=== PATIENT | male | born 1995 | race Caucasian/White ===

== ENCOUNTER 2017-02-06 10:35 | Emergency (ER) | payer OTHER ==
[~2017-02-06] VITALS: Ht 182.8 cm; Wt 124.7 kg
[~2017-02-06 10:35] MED LIST: AMOXICILLIN PO; AMOXICILLIN500 MG PO; AMOXIL400 MG PO; BACTRIM DS 8001 TAB PO; CILOXAN 5 ML5 ML OT; CYCLOBENZAPRINE10 MG PO; FLEXERIL10 MG PO; GENTACIDIN5 ML; HYDROCODONE BIT1 T11 PO; KEFLEX500 MG PO; MOTRIN800 MG PO; Motrin,Rufen800 MG PO; NAPROSYN500 MG PO; PERCOCET 325 MG1 TA2 PO; PREDNISONE20 M1 PO; ROXICET PO; VENTOLIN H0.09 MG/AC INH; VYVANSE60 MG PO; VYVANSE70 MG PO; WELLBUTRIN75 MG PO; ZITHROMAX Z PA250 MG PO; ZITHROMAX250 MG PO; [UNRECOGNIZED DRUG - OTHER] OT
[2017-02-06 11:06] VITALS: BP 132/77
== END 2017-02-06 11:50 | disposition home or self-care (01) ==
LOC: ED 10:35
DX: S05.02XA Injury of conjunctiva and corneal abrasion without foreign body, left eye, initial encounter (principal); F17.200 Nicotine dependence, unspecified, uncomplicated; Z79.899 Other long term (current) drug therapy; X58.XXXA Exposure to other specified factors, initial encounter; Y93.89 Activity, other specified; Y92.219 Unspecified school as the place of occurrence of the external cause; Y99.9 Unspecified external cause status

== ENCOUNTER 2017-05-31 13:32 | Emergency (ER) | payer OTHER ==
[~2017-05-31] VITALS: Ht 182.8 cm; Wt 120.2 kg
[2017-05-31 13:38] VITALS: BP 152/86
[2017-05-31] MEDS ORDERED: CORTISPORIN SUS10 ML OT (13:52)
== END 2017-05-31 14:01 | disposition home or self-care (01) ==
LOC: ED 13:32
DX: H60.502 Unspecified acute noninfective otitis externa, left ear (principal); F17.200 Nicotine dependence, unspecified, uncomplicated; Z79.899 Other long term (current) drug therapy

== ENCOUNTER 2017-08-16 00:47 | Emergency (ER) | payer OTHER ==
[~2017-08-16] VITALS: Ht 213.3 cm; Wt 127.0 kg
[~2017-08-16 00:47] MED LIST changes: +CORTISPORIN SUS10 ML OT
[2017-08-16 00:54] VITALS: BP 127/72
[2017-08-16] MEDS ORDERED: ROBAXIN500 M1 PO (01:34)
[2017-08-16] MEDS ORDERED: ANAPROX DS550 MG PO (01:34)
== END 2017-08-16 02:06 | disposition home or self-care (01) ==
LOC: ED 00:47
DX: S13.9XXA Sprain of joints and ligaments of unspecified parts of neck, initial encounter (principal); R51 Headache; F17.200 Nicotine dependence, unspecified, uncomplicated; Z79.899 Other long term (current) drug therapy; V49.59XA Passenger injured in collision with other motor vehicles in traffic accident, initial encounter; Y93.89 Activity, other specified; Y92.413 State road as the place of occurrence of the external cause; Y99.9 Unspecified external cause status

== ENCOUNTER 2017-09-20 10:05 | Inpatient (IN) | payer OTHER ==
[~2017-09-20] VITALS: Ht 185.4 cm; Wt 154.3 kg
--- NOTE | ~2017-09-20 | PR ---
[place], [place] PROGRESS NOTE NAME: REA MANCINI [facility] #: [id number] UNIT #: [id number] ROOM: 506 DOCTOR: FRANK ROLAND MD BIRTHDATE: [birth year] DOS: 09/22/2017 SUBJECTIVE: The patient appears to be doing well. Denies any specific cardiac complaint. No symptomatic palpitation, no chest pain. No dizziness, no syncope. OBJECTIVE: VITAL SIGNS: Blood pressure 117/76, heart rate 87, respiration rate of 18, temperature 98.3. NECK: Good upstroke, no bruit. HEART: S1, S2, no rub. LUNGS: Clear to auscultation. EXTREMITIES: Lower extremities, mild edema. LABORATORY DATA: White count 8.0, hemoglobin 14.7, potassium 4.3, GFR more than 60%. C-reactive protein is 1.1. D-dimer is less than 0.19. Tox screen is negative. [place] screen is also negative. Sed rate is 12. ASSESSMENT AND PLAN: Current presentation with abnormal EKG along with syncope in a patient who is morbidly obese. Echocardiogram confirmed normal LV function with no significant valve abnormalities. The stress test scheduled for this morning and found that the patient can be discharged home with early followup with us in 6 weeks after 30 days of [facility]. Should there be any recurrence of his symptoms at any time, the patient was encouraged to call us back. Exercise, weight loss, keeping well hydrated, avoiding caffeinated drinks were all detailed. FRANK ROLAND MD CM:DANNIE 1022 [id number] FRANK ROLAND MD 09/22/17 1319 interface
--- NOTE | ~2017-09-20 | ST ---
[place], [place] EXERCISE STRESS TEST REPORT [id number] #: [id number] ROOM: 506 DOCTOR: FRANK ROLAND MD BIRTHDATE: [birth year] DOS: 09/22/2017 INDICATION: Chest pain, with syncope. PROCEDURE: The patient was brought into the stress lab, procedure was explained with risks, benefits, and alternatives. Lexiscan was injected. The patient tolerated the procedure well. BLOOD PRESSURE RESPONSE: Resting blood pressure 108/82 with ending blood pressure 110/80. ELECTROCARDIOGRAM INTERPRETATION: The resting electrocardiogram showed normal sinus rhythm, heart rate of 78, early R-wave progression. Following the injection, there was no evidence of any significant ST or T-wave changes suggestive of myocardial ischemia. No arrhythmias were noted. SUMMARY: 1. Adequate Lexiscan stress test. 2. Negative Lexiscan stress test for stress induced myocardial ischemia. 3. No arrhythmias were noted. 4. Nuclear images will be reported separately. FRANK ROLAND MD CM:STRESS:EXERCISE STRESS TEST REPORT [id number] FRANK ROLAND MD
[2017-09-20 10:05] VITALS: BP 153/89
[~2017-09-20 10:05] MED LIST changes: +ANAPROX DS550 MG PO; +ROBAXIN500 M1 PO
[2017-09-20 10:36] LABS: BASO % 0.2 % (0.0-1.0); EOS # 0.2 10*3/uL (0.0-0.4); EOS % 1.7 % (1.0-4.0); HEMATOCRIT 44.9 % (42.0-52.0); LYMPH # 1.8 10*3/uL (1.3-4.4); LYMPH % 17.5 % (27.0-41.0); MEAN CELL VOLUME 87.4 fl (80.0-94.0); MEAN CORPUSCULAR HGB 31.1 pg (27.0-31.0); MEAN CORPUSCULAR HGB CONC 35.6 g/dl (33.0-37.0); MEAN PLATELET VOLUME 9.6 fl (9.6-12.3); MONO # 0.6 10*3/uL (0.1-1.0); MONO % 5.7 % (3.0-9.0); NEUT # 7.7 10*3/uL (2.3-7.9); NEUT % 74.6 % (47.0-73.0); PLATELET COUNT AUTOMATED 216 10*3/uL (130-400); RED BLOOD COUNT 5.14 10*6/uL (4.50-5.90); WHITE BLOOD COUNT 10.3 10*3/uL (4.8-10.8)
[2017-09-20 10:44] LABS: INTERNATIONAL NORM RATIO 1.1 (2.0-3.5)
[2017-09-20 10:54] LABS: ALBUMIN 4.1 gm/dl (3.1-4.5); ALKALINE PHOSPHATASE 64 U/L (45-117); BUN 10 mg/dl (7-24); CHLORIDE 103 mmol/L (98-107); CREATININE 1.07 mg/dL (0.70-1.30); POTASSIUM 3.8 mmol/L (3.5-5.1); SGOT/AST 40 IU/L (3-35); SGPT/ALT 66 U/L (12-78); SODIUM 137 mmol/L (136-145)
[2017-09-20 10:55] LABS: TROPONIN I < 0.015 ng/ml (<0.045)
[2017-09-20 12:58] LABS: BILIRUBIN NEGATIVE (NEGATIVE); BLOOD NEGATIVE (NEGATIVE); CLARITY CLEAR (CLEAR); COLOR YELLOW (YELLOW); GLUCOSE NEGATIVE (NEGATIVE); KETONE NEGATIVE (NEGATIVE); LEUKO ESTERASE NEGATIVE (NEGATIVE); NITRITE NEGATIVE (NEGATIVE); PH 5.5 (5.0-9.0)
[2017-09-20 13:05] LABS: WBC 0-2 wbc/hpf (0-5)
[2017-09-20 13:11] LABS: URINE AMPHETAMINES < 1000 (1000ng/ml); URINE BARBITURATES < 200 (200ng/ml); URINE BENZODIAZEPINES < 200 (200ng/ml); URINE CANNABINOIDS (THC) < 50 (50ng/ml); URINE COCAINE < 300 (300ng/ml); URINE METHADONE < 300 (300ng/ml); URINE OPIATES < 300 (300ng/ml)
[2017-09-20 13:13] LABS: URINE PHENCYCLIDINE < 25 (25ng/ml)
[2017-09-20 14:50] VITALS: BP 147/90
[2017-09-20 15:18] VITALS: BP 147/90
--- NOTE | 2017-09-20 16:01 | NUR ---
A 21, admitted to , under the services of YUNG Caal DO with a diagnosis of SYNCOPE. Chief complaint is SYNCOPE. Patient arrived via ambulatory from ER. Monitor applied. Initial assessment completed. Vital signs taken and recorded. YUNG CAAL DO notified of admission to the unit. Orders received. See assessment for past medical history, medications and allergies. Patient and/or family oriented to unit. [address] visitation policy reviewed. Clothing/patient valuable form completed. VIANCA TEIXEIRA
--- NOTE | 2017-09-20 17:18 | NUR ---
PT RECEIVED NORCO FOR PAIN IN FOOT RATED 6/10.
--- NOTE | 2017-09-20 17:56 | NUR ---
PT STATES THAT HE DOES NOT NEED TO TAKE VYVANSE WHILE HE IS IN THE HOSPITAL SO I WAS ABLE TO DISCONTINUE THE MED.
--- NOTE | 2017-09-20 19:06 | NUR ---
PT RECEIVED NICOTROL INHALER FOR NICOTINE CRAVINGS.
--- NOTE | 2017-09-20 19:06 | NUR ---
PT STATES NORCO WAS EFFECTIVE.
--- NOTE | 2017-09-20 19:35 | NUR ---
CHARTED PT'S ORTHOSTATIC BLOOD PRESSURES.
[2017-09-20 20:00] VITALS: BP 120/66
--- NOTE | 2017-09-20 20:02 | NUR ---
PT. IS CURRENTLY RESTING IN BED AT THIS TIME WATCHING TV. PT. HAS HOB ELEVATED AND RESPIRATIONS ARE EASY AND REGULA WITH NO DISTRESS NOTED. PT. DOES NOT VERBALIZE ANY COMPLAINTS OR CONCERNS AT THIS TIME. BED IS LOW, WHEELS ARE LOCKED, AND CALL LIGHT IS WITHIN REACH. SEE SHIFT ASSESSMENT.
--- NOTE | 2017-09-20 23:56 | NUR ---
24 HR chart check completed.
[2017-09-21] VITALS: BP 129/76
--- NOTE | 2017-09-21 05:55 | NUR ---
DR. Torrey PACK CONTACTED IN REGARDS TO PT. RECIEVING 0.45NS+20MEQ KCL, NO NEW ORDERS.
[2017-09-21 06:44] LABS: BASO % 0.2 % (0.0-1.0); EOS # 0.3 10*3/uL (0.0-0.4); EOS % 3.3 % (1.0-4.0); HEMATOCRIT 41.9 % (42.0-52.0); HEMOGLOBIN 14.5 g/dl (14.0-18.0); LYMPH # 2.8 10*3/uL (1.3-4.4); LYMPH % 34.4 % (27.0-41.0); MEAN CELL VOLUME 89.5 fl (80.0-94.0); MEAN CORPUSCULAR HGB CONC 34.6 g/dl (33.0-37.0); MONO # 0.8 10*3/uL (0.1-1.0); MONO % 10.1 % (3.0-9.0); NEUT # 4.2 10*3/uL (2.3-7.9); NEUT % 51.6 % (47.0-73.0); PLATELET COUNT AUTOMATED 202 10*3/uL (130-400); RED BLOOD COUNT 4.68 10*6/uL (4.50-5.90); RED CELL DISTRI WIDTH 12.2 % (0-14.5); WHITE BLOOD COUNT 8.1 10*3/uL (4.8-10.8)
[2017-09-21 07:15] LABS: ALBUMIN 3.6 gm/dl (3.1-4.5); ALKALINE PHOSPHATASE 61 U/L (45-117); BUN 10 mg/dl (7-24); CHLORIDE 102 mmol/L (98-107); CHOLESTEROL 231 mg/dL (<200); FREE T4 1.39 ng/dl (0.76-1.46); HDL CHOLESTEROL 29 mg/dl (40-60); LDL CHOLESTEROL 158 mg/dL (9-159); PHOSPHOROUS 3.8 mg/dL (2.5-4.9); POTASSIUM 4.1 mmol/L (3.5-5.1); SGOT/AST 26 IU/L (3-35); SGPT/ALT 49 U/L (12-78); SODIUM 137 mmol/L (136-145); TOTAL PROTEIN 7.1 gm/dL (6.4-8.2); TRIGLYCERIDES 219 mg/dl (<150); VLDL CHOLESTEROL 44 mg/dL (6-40)
--- NOTE | 2017-09-21 07:42 | NUR ---
CARDIOLOGY ANSWERING SERVICE CONTACTED IN REGARDS TO CONSULT, AWAITING CALL BACK.
[2017-09-21 08:00] VITALS: BP 104/60
[2017-09-21 08:05] LABS: VITAMIN D, 25-HYDROXY 14.6 ng/mL (30-100)
--- NOTE | 2017-09-21 09:00 | NUR ---
Electromatic Typist in to talk to patient. Patient states lives at home with family. There are few steps in the home. Physician: Pharmacy: [facility] services: none Patient's level of ADLs: INDEPENDENT Patient has working utilities: all working DME: none Follow-up physician's appointment after d/c: will be made by hospitalist nurse director upon discharge Does patient want to access PORTAL?: no Discharge plan home. SHARON GARCIA
[2017-09-21 12:00] VITALS: BP 108/62
--- NOTE | 2017-09-21 14:45 | NUR ---
PHYSICAL THERAPY House keeping mopping floor 1425. retunred at 1440, sleeping soundly and unable to arouse with voice at this time. Will attempt later time or date. Thamk you for this referral. Maria M Mercer,PT
[2017-09-21 16:00] VITALS: BP 108/62
[2017-09-21 20:00] VITALS: BP 130/67
[2017-09-22] VITALS: BP 132/68
[2017-09-22 06:57] LABS: BASO % 0.3 % (0.0-1.0); EOS # 0.3 10*3/uL (0.0-0.4); EOS % 3.3 % (1.0-4.0); HEMOGLOBIN 14.7 g/dl (14.0-18.0); LYMPH # 2.6 10*3/uL (1.3-4.4); MEAN CELL VOLUME 90.5 fl (80.0-94.0); MEAN CORPUSCULAR HGB 31.7 pg (27.0-31.0); MONO # 0.7 10*3/uL (0.1-1.0); MONO % 8.6 % (3.0-9.0); NEUT # 4.4 10*3/uL (2.3-7.9); NEUT % 54.5 % (47.0-73.0); PLATELET COUNT AUTOMATED 199 10*3/uL (130-400); RED BLOOD COUNT 4.64 10*6/uL (4.50-5.90); RED CELL DISTRI WIDTH 12.2 % (0-14.5)
[2017-09-22 07:24] LABS: BUN 10 mg/dl (7-24); CHLORIDE 105 mmol/L (98-107); CREATININE 0.81 mg/dL (0.70-1.30); POTASSIUM 4.3 mmol/L (3.5-5.1); SODIUM 138 mmol/L (136-145)
[2017-09-22 08:00] VITALS: BP 117/76
--- NOTE | 2017-09-22 08:40 | NUR ---
PT OFF FLOOR FOR STRESS TEST THIS AM WITH DR ROLAND.
--- NOTE | 2017-09-22 09:40 | NUR ---
case management attempted to visit with patient, patient out of the room for testing
--- NOTE | 2017-09-22 10:08 | NUR ---
INFORMED SIGNED CONSENT OBTAINED FOR LEXISCAN STRESS TEST WITH DR ROLAND. RESTING EKG NSR HR 78 BP 108/82. PULSE OX 98% LUNGS CLEAR. PT COMPLETED ONE MINUTE OF A LEXISCAN PROTOCOL WITH PT RECEIVING LEXISCAN 0.4MG IV OVER 10 SECONDS. NO ARRHTYMIAS OR ST CHANGES NOTED. PT C/O SOB, LIGHTHEADEDNESS AND DIZZY WITH INJECTION. LAST RECOVERY HR OF 108 BP 110/80. PT IN STABLE CONDITION, AWAITING NUCLEAR IMAGES.
--- NOTE | 2017-09-22 10:29 | NUR ---
PHYSICAL THERAPY PAtient at stress test. Maria M Mercer,PT
--- NOTE | 2017-09-22 11:07 | NUR ---
PT BACK TO FLOOR VIA TRANSPORT FROM STRESS TEST.
[2017-09-22 12:00] VITALS: BP 116/83
[2017-09-22] MEDS ORDERED: VITAMIN D5000 UNI1 PO (13:55)
[2017-09-22] MEDS ORDERED: B12,B-12,B 12500 MC1 PO (13:55)
--- NOTE | 2017-09-22 14:05 | NUR ---
PHYSICAL THERAPY PAtient evaluated on 5, full evaluation to follow. D/C PT after evaluation: patient 100 % (I) all functional mobility including stairs, stops,turns and picking objects up off floor without vertigo or syncopy symptoms. PAtient agrees. PAtient is low compexity via chart review, tests and evaluation: [id number]. Thank you for this referral. Maria M Mercer,PT
--- NOTE | 2017-09-22 16:02 | NUR ---
Discharge instructions reviewed with patient/family. Patient receptive and verbalizes understanding. Follow-up care arranged. Written instructions given to patient/family. AYANNA MARSH
== END 2017-09-22 16:02 | disposition home or self-care (01) | DRG 312 ==
LOC: ED 10:05 → EDHOLD 13:54 → 5E 13:54
PROVIDERS: Internal Medicine; Physician Assistant; Student in an Organized Health Care Education/Training Program; ADMIT Emergency Medicine
PROC: 4A02XM4 Measurement of Cardiac Total Activity, External Approach (ICD-10-PCS; principal; 2017-09-22)
PROC: 3E073KZ Introduction of Other Diagnostic Substance into Coronary Artery, Percutaneous Approach (ICD-10-PCS; 2017-09-22)
DX: I95.1 Orthostatic hypotension (principal); E87.2 Acidosis; E66.01 Morbid (severe) obesity due to excess calories; Z68.41 Body mass index [BMI] 40.0-44.9, adult; I10 Essential (primary) hypertension; R73.9 Hyperglycemia, unspecified; J45.909 Unspecified asthma, uncomplicated; K21.9 Gastro-esophageal reflux disease without esophagitis; R74.0 Nonspecific elevation of levels of transaminase and lactic acid dehydrogenase [LDH]; F90.9 Attention-deficit hyperactivity disorder, unspecified type; F17.210 Nicotine dependence, cigarettes, uncomplicated; E78.5 Hyperlipidemia, unspecified; E55.9 Vitamin D deficiency, unspecified; E53.8 Deficiency of other specified B group vitamins; Z83.3 Family history of diabetes mellitus; Z71.6 Tobacco abuse counseling; Z82.49 Family history of ischemic heart disease and other diseases of the circulatory system; Z79.899 Other long term (current) drug therapy

== ENCOUNTER 2017-10-26 13:26 | Emergency (ER) | payer OTHER ==
[~2017-10-26] VITALS: Ht 185.4 cm; Wt 129.3 kg
[~2017-10-26 13:26] MED LIST changes: +B12,B-12,B 12500 MC1 PO; +VITAMIN D5000 UNI1 PO
[2017-10-26] MEDS ORDERED: VYVANSE70 MG PO (13:29)
[2017-10-26 13:32] VITALS: BP 139/74
[2017-10-26] MEDS ORDERED: CEPHALEXIN500 M1 PO (14:53)
== END 2017-10-26 15:23 | disposition home or self-care (01) ==
LOC: ED 13:26
DX: L03.012 Cellulitis of left finger (principal); F17.200 Nicotine dependence, unspecified, uncomplicated; Z79.899 Other long term (current) drug therapy

== ENCOUNTER 2018-05-08 18:34 | Emergency (ER) | payer OTHER ==
[~2018-05-08] VITALS: Ht 182.8 cm; Wt 129.3 kg
[~2018-05-08 18:34] MED LIST changes: +CEPHALEXIN500 M1 PO
[2018-05-08 18:36] VITALS: BP 128/75
== END 2018-05-08 19:15 | disposition home or self-care (01) ==
LOC: ED 18:34
DX: S51.811A Laceration without foreign body of right forearm, initial encounter (principal); I10 Essential (primary) hypertension; J45.909 Unspecified asthma, uncomplicated; K21.9 Gastro-esophageal reflux disease without esophagitis; E78.5 Hyperlipidemia, unspecified; E66.01 Morbid (severe) obesity due to excess calories; Z79.899 Other long term (current) drug therapy; X58.XXXA Exposure to other specified factors, initial encounter; Y93.89 Activity, other specified; Y92.89 Other specified places as the place of occurrence of the external cause; Y99.8 Other external cause status

== ENCOUNTER 2018-05-29 16:47 | Emergency (ER) | payer OTHER ==
[~2018-05-29] VITALS: Ht 185.4 cm; Wt 149.7 kg
--- NOTE | ~2018-05-29 | EKG ---
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
[2018-05-29 16:51] VITALS: BP 128/81
[2018-05-29 17:13] LABS: BILIRUBIN NEGATIVE (NEGATIVE); BLOOD NEGATIVE (NEGATIVE); CLARITY CLEAR (CLEAR); COLOR YELLOW (YELLOW); GLUCOSE NEGATIVE (NEGATIVE); KETONE NEGATIVE (NEGATIVE); LEUKO ESTERASE NEGATIVE (NEGATIVE); NITRITE NEGATIVE (NEGATIVE); PH 6.5 (5.0-9.0); UROBILINOGEN 0.2 E.U./dl (0.2-1.0)
[2018-05-29 17:15] LABS: BASO % 0.3 % (0.0-1.0); EOS # 0.3 10*3/uL (0.0-0.4); HEMATOCRIT 43.7 % (42.0-52.0); HEMOGLOBIN 15.3 g/dl (14.0-18.0); LYMPH # 2.4 10*3/uL (1.3-4.4); LYMPH % 31.4 % (27.0-41.0); MEAN CELL VOLUME 89.5 fl (80.0-94.0); MEAN CORPUSCULAR HGB 31.4 pg (27.0-31.0); MEAN PLATELET VOLUME 9.7 fl (9.6-12.3); MONO # 0.5 10*3/uL (0.1-1.0); MONO % 6.9 % (3.0-9.0); NEUT # 4.3 10*3/uL (2.3-7.9); PLATELET COUNT AUTOMATED 249 10*3/uL (130-400); RED BLOOD COUNT 4.88 10*6/uL (4.50-5.90); WHITE BLOOD COUNT 7.6 10*3/uL (4.8-10.8)
[2018-05-29 17:23] LABS: MUCOUS TRACE; RBC 0-2 rbc/hpf (0-2); WBC 0-2 wbc/hpf (0-5)
[2018-05-29 17:30] LABS: ALBUMIN 3.7 gm/dl (3.1-4.5); ALKALINE PHOSPHATASE 58 U/L (45-117); BUN 12 mg/dl (7-24); CHLORIDE 105 mmol/L (98-107); CREATININE 0.96 mg/dL (0.70-1.30); POTASSIUM 4.5 mmol/L (3.5-5.1); SGOT/AST 54 IU/L (3-35); SGPT/ALT 62 U/L (12-78); SODIUM 138 mmol/L (136-145); TOTAL PROTEIN 7.7 gm/dL (6.4-8.2)
[2018-05-29 17:35] LABS: TROPONIN I < 0.015 ng/ml (<0.045)
[2018-05-29] MEDS ORDERED: KEFLEX500 M1 PO (18:03)
== END 2018-05-29 18:13 | disposition home or self-care (01) ==
LOC: ED 16:47
PROVIDERS: Nurse Practitioner Family
DX: T25.622A Corrosion of second degree of left foot, initial encounter (principal); R51 Headache; I10 Essential (primary) hypertension; J45.909 Unspecified asthma, uncomplicated; E78.5 Hyperlipidemia, unspecified; K21.9 Gastro-esophageal reflux disease without esophagitis; F17.200 Nicotine dependence, unspecified, uncomplicated; Z79.899 Other long term (current) drug therapy; Y93.89 Activity, other specified; Y92.89 Other specified places as the place of occurrence of the external cause; Y99.8 Other external cause status

== ENCOUNTER 2019-01-02 21:26 | Emergency (ER) | payer OTHER ==
[~2019-01-02] VITALS: Ht 185.4 cm; Wt 130.6 kg
[~2019-01-02 21:26] MED LIST changes: +KEFLEX500 M1 PO
[2019-01-02 21:27] VITALS: BP 128/72
[2019-01-02] MEDS ORDERED: ANAPROX DS550 MG PO (23:21)
== END 2019-01-02 23:39 | disposition home or self-care (01) ==
LOC: ED 21:26
DX: S93.492A Sprain of other ligament of left ankle, initial encounter (principal); Z79.899 Other long term (current) drug therapy; X50.1XXA Overexertion from prolonged static or awkward postures, initial encounter; Y93.01 Activity, walking, marching and hiking; Y92.89 Other specified places as the place of occurrence of the external cause; Y99.9 Unspecified external cause status

== ENCOUNTER 2019-05-23 21:11 | Emergency (ER) | payer OTHER ==
[~2019-05-23] VITALS: Ht 185.4 cm; Wt 127.0 kg
[2019-05-23 21:15] VITALS: BP 131/69
[2019-05-23] MEDS ORDERED: PREDNISONE10 MG PO (21:22)
== END 2019-05-23 21:28 | disposition home or self-care (01) ==
LOC: ED 21:11
DX: L23.7 Allergic contact dermatitis due to plants, except food (principal); F17.200 Nicotine dependence, unspecified, uncomplicated; Z79.899 Other long term (current) drug therapy

== ENCOUNTER 2019-06-23 14:43 | Emergency (ER) | payer OTHER ==
[~2019-06-23] VITALS: Ht 185.4 cm; Wt 127.0 kg
--- NOTE | ~2019-06-23 | EKG ---
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 DRAFT REPORT CASSI HANDY MD
--- NOTE | ~2019-06-23 | EKG ---
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
[~2019-06-23 14:43] MED LIST changes: +PREDNISONE10 MG PO
[2019-06-23 15:02] LABS: BASO % 0.3 % (0.0-1.0); EOS # 0.2 10*3/uL (0.0-0.4); EOS % 2.6 % (1.0-4.0); HEMATOCRIT 42.7 % (42.0-52.0); HEMOGLOBIN 14.9 g/dl (14.0-18.0); LYMPH # 1.6 10*3/uL (1.3-4.4); LYMPH % 20.8 % (27.0-41.0); MEAN CELL VOLUME 90.1 fl (80.0-94.0); MEAN CORPUSCULAR HGB 31.4 pg (27.0-31.0); MEAN CORPUSCULAR HGB CONC 34.9 g/dl (33.0-37.0); MEAN PLATELET VOLUME 9.7 fl (9.6-12.3); MONO # 0.8 10*3/uL (0.1-1.0); MONO % 10.8 % (3.0-9.0); NEUT % 65.2 % (47.0-73.0); PLATELET COUNT AUTOMATED 196 10*3/uL (130-400); RED BLOOD COUNT 4.74 10*6/uL (4.50-5.90); RED CELL DISTRI WIDTH 12.1 % (0-14.5); WHITE BLOOD COUNT 7.7 10*3/uL (4.8-10.8)
[2019-06-23 15:13] LABS: ACT PARTIAL THROMBO TIME 27.6 SECONDS (20.0-32.1)
[2019-06-23 15:20] LABS: ALBUMIN 3.9 gm/dl (3.1-4.5); ALKALINE PHOSPHATASE 58 U/L (45-117); BUN 7 mg/dl (7-24); CHLORIDE 104 mmol/L (98-107); CREATININE 0.93 mg/dL (0.70-1.30); POTASSIUM 3.8 mmol/L (3.5-5.1); SGOT/AST 26 IU/L (3-35); SGPT/ALT 46 U/L (12-78); SODIUM 137 mmol/L (136-145); TOTAL PROTEIN 7.8 gm/dL (6.4-8.2)
[2019-06-23 15:22] LABS: TROPONIN I < 0.015 ng/ml (<0.045)
[2019-06-23 16:00] VITALS: BP 140/62
[2019-06-23] MEDS ORDERED: PROVENTIL HFA6.7 GM INH (16:49)
[2019-06-23] MEDS ORDERED: AVPAK AZITHROM250 MG PO (16:49)
== END 2019-06-23 17:03 | disposition home or self-care (01) ==
LOC: ED 14:43
PROVIDERS: Emergency Medicine
DX: J18.9 Pneumonia, unspecified organism (principal); R55 Syncope and collapse; R42 Dizziness and giddiness; H53.8 Other visual disturbances; J45.909 Unspecified asthma, uncomplicated; K21.9 Gastro-esophageal reflux disease without esophagitis; E78.5 Hyperlipidemia, unspecified; E66.01 Morbid (severe) obesity due to excess calories; I10 Essential (primary) hypertension; F17.200 Nicotine dependence, unspecified, uncomplicated; Z79.899 Other long term (current) drug therapy

== ENCOUNTER → 2019-10-11 | Outpatient (CLI) | payer OTHER ==
[~2019-10-11] MED LIST changes: +AVPAK AZITHROM250 MG PO; +PROVENTIL HFA6.7 GM INH
== END | disposition home or self-care (01) ==
LOC: CT 12:53
DX: M25.471 Effusion, right ankle (principal); M25.475 Effusion, left foot; M25.772 Osteophyte, left ankle

== ENCOUNTER → 2019-10-17 | Outpatient (CLI) | payer OTHER | END | disposition home or self-care (01) | LOC: MRI 12:53 | DX: Z01.818 Encounter for other preprocedural examination (principal); M19.071 Primary osteoarthritis, right ankle and foot; M19.072 Primary osteoarthritis, left ankle and foot; S93.412A Sprain of calcaneofibular ligament of left ankle, initial encounter; X58.XXXA Exposure to other specified factors, initial encounter; Y93.89 Activity, other specified; Y92.89 Other specified places as the place of occurrence of the external cause; Y99.8 Other external cause status ==

== ENCOUNTER → 2019-10-18 | Outpatient (CLI) | payer OTHER | END | disposition home or self-care (01) | LOC: MRI 00:07 | DX: M19.071 Primary osteoarthritis, right ankle and foot (principal); M25.571 Pain in right ankle and joints of right foot; M25.771 Osteophyte, right ankle ==

== ENCOUNTER 2019-10-27 13:10 | Emergency (ER) | payer OTHER ==
[~2019-10-27] VITALS: Ht 185.4 cm; Wt 127.0 kg
[2019-10-27 13:28] VITALS: BP 134/70
[2019-10-27] MEDS ORDERED: IBU800 MG PO (14:50)
[2019-10-27] MEDS ORDERED: TAMIFLU 75MG CA75 MG PO (14:50)
[2019-10-27] MEDS ORDERED: TESSALON PERLE100 MG PO (14:50)
== END 2019-10-27 15:11 | disposition home or self-care (01) ==
LOC: ED 13:10
DX: J10.1 Influenza due to other identified influenza virus with other respiratory manifestations (principal); J45.909 Unspecified asthma, uncomplicated; K21.9 Gastro-esophageal reflux disease without esophagitis; F17.200 Nicotine dependence, unspecified, uncomplicated; Z79.899 Other long term (current) drug therapy; Z79.2 Long term (current) use of antibiotics

== ENCOUNTER 2020-07-29 00:36 | Emergency (ER) | payer OTHER ==
[~2020-07-29] VITALS: Ht 182.8 cm; Wt 176.9 kg
[~2020-07-29 00:36] MED LIST changes: +IBU800 MG PO; +TAMIFLU 75MG CA75 MG PO; +TESSALON PERLE100 MG PO
[2020-07-29 00:50] VITALS: BP 127/74
[2020-07-29] MEDS ORDERED: HYDROCODON-ACE1 EACH PO (03:09)
== END 2020-07-29 03:25 | disposition home or self-care (01) ==
LOC: ED 00:36
DX: R07.81 Pleurodynia (principal); Z79.899 Other long term (current) drug therapy

== ENCOUNTER 2022-09-19 18:07 | Emergency (ER) | payer OTHER ==
[~2022-09-19] VITALS: Ht 185.4 cm; Wt 172.4 kg
[~2022-09-19 18:07] MED LIST changes: +HYDROCODON-ACE1 EACH PO
[2022-09-19 18:14] VITALS: BP 149/85
[2022-09-19] MEDS ORDERED: NAPROSYN500 MG PO (20:56)
[2022-09-19] MEDS ORDERED: METHOCARBAMOL500 M1 PO (20:56)
== END 2022-09-19 21:06 | disposition home or self-care (01) ==
LOC: ED 18:07
DX: M25.521 Pain in right elbow (principal); Z79.82 Long term (current) use of aspirin; Z90.89 Acquired absence of other organs; F17.200 Nicotine dependence, unspecified, uncomplicated

== ENCOUNTER 2022-11-02 13:04 | Emergency (ER) | payer OTHER ==
[~2022-11-02 13:04] MED LIST changes: +METHOCARBAMOL500 M1 PO
[2022-11-02 13:25] VITALS: BP 140/80
[2022-11-02] MEDS ORDERED: PREDNISONE20 M1 PO (18:23)
[2022-11-02] MEDS ORDERED: METHOCARBAMOL500 M1 PO (18:23)
== END 2022-11-02 18:36 | disposition home or self-care (01) ==
LOC: ED 13:04
DX: S93.401A Sprain of unspecified ligament of right ankle, initial encounter (principal); M54.41 Lumbago with sciatica, right side; Z87.891 Personal history of nicotine dependence; Z90.89 Acquired absence of other organs; Z79.899 Other long term (current) drug therapy; W18.39XA Other fall on same level, initial encounter; Y93.89 Activity, other specified; Y92.89 Other specified places as the place of occurrence of the external cause; Y99.8 Other external cause status

== ENCOUNTER → 2022-12-22 | Outpatient (CLI) | payer OTHER ==
[2022-12-22 09:04] LABS: HEMATOCRIT 42.3 % (42.0-52.0); MEAN CELL VOLUME 92.2 fl (80.0-94.0); MEAN CORPUSCULAR HGB 31.4 pg (27.0-31.0); MEAN PLATELET VOLUME 8.8 fl (9.6-12.3); RED BLOOD COUNT 4.59 10*6/uL (4.50-5.90); RED CELL DISTRI WIDTH 12.7 % (0-14.5); WHITE BLOOD COUNT 9.5 10*3/uL (4.8-10.8)
[2022-12-22 09:36] LABS: ALKALINE PHOSPHATASE 45 U/L (46-116); BUN 14 mg/dl (9-23); CHLORIDE 102 mmol/L (98-107); CHOLESTEROL 257 mg/dL (<200); FREE T4 1.29 ng/dl (0.89-1.76); LDL CHOLESTEROL 187 mg/dL (9-159); SGPT/ALT 17 U/L (10-49); THYROID STIM HORMONE (HS) 0.997 uIU/ml (0.550-4.780); TOTAL PROTEIN 7.5 gm/dL (6.0-8.0); TRIGLYCERIDES 189 mg/dl (<150)
[2022-12-22 10:49] LABS: VITAMIN D, 25-HYDROXY 6.7 ng/mL (30-100)
== END | disposition home or self-care (01) ==
LOC: LAB 08:50
PROVIDERS: ATTEND Family Medicine
DX: E66.01 Morbid (severe) obesity due to excess calories (principal); E78.00 Pure hypercholesterolemia, unspecified; E55.9 Vitamin D deficiency, unspecified; F41.1 Generalized anxiety disorder; E74.00 Glycogen storage disease, unspecified; R53.83 Other fatigue; M79.10 Myalgia, unspecified site; M25.50 Pain in unspecified joint

== ENCOUNTER 2023-02-03 12:56 | Emergency (ER) | payer OTHER ==
[~2023-02-03] VITALS: Ht 185.4 cm; Wt 174.6 kg
[2023-02-03 13:16] VITALS: BP 140/91
[2023-02-03] MEDS ORDERED: TESTOSTERO200 MG/1 M IM (13:18)
[2023-02-03 13:56] LABS: BASO % 0.2 % (0.0-1.0); EOS # 0.5 10*3/uL (0.0-0.4); EOS % 5.8 % (1.0-4.0); HEMATOCRIT 44.3 % (42.0-52.0); LYMPH % 24.1 % (27.0-41.0); MEAN CELL VOLUME 89.5 fl (80.0-94.0); MEAN CORPUSCULAR HGB 31.3 pg (27.0-31.0); MEAN PLATELET VOLUME 9.6 fl (9.6-12.3); MONO # 0.7 10*3/uL (0.1-1.0); NEUT # 4.9 10*3/uL (2.3-7.9); NEUT % 60.4 % (47.0-73.0); PLATELET COUNT AUTOMATED 222 10*3/uL (130-400); RED BLOOD COUNT 4.95 10*6/uL (4.50-5.90); RED CELL DISTRI WIDTH 12.2 % (0-14.5); WHITE BLOOD COUNT 8.1 10*3/uL (4.8-10.8)
[2023-02-03 14:12] LABS: ALKALINE PHOSPHATASE 54 U/L (46-116); BUN 6 mg/dl (9-23); CHLORIDE 105 mmol/L (98-107); POTASSIUM 4.1 mmol/L (3.4-5.1); SGPT/ALT 21 U/L (10-49); TOTAL PROTEIN 7.2 gm/dL (6.0-8.0); URIC ACID 10.2 mg/dL (3.7-9.2)
[2023-02-03] MEDS ORDERED: HYDROCODONE-AC1 EAC1 PO (15:36)
[2023-02-03] MEDS ORDERED: PREDNISONE50 MG PO (15:36)
== END 2023-02-03 15:55 | disposition home or self-care (01) ==
LOC: ED 12:56
PROVIDERS: Emergency Medicine
DX: M65.871 Other synovitis and tenosynovitis, right ankle and foot (principal); Z90.89 Acquired absence of other organs; F17.200 Nicotine dependence, unspecified, uncomplicated

== ENCOUNTER 2023-03-09 11:50 | Emergency (ER) | payer OTHER ==
[~2023-03-09] VITALS: Ht 185.4 cm; Wt 176.9 kg
[~2023-03-09 11:50] MED LIST changes: +HYDROCODONE-AC1 EAC1 PO; +PREDNISONE50 MG PO; +TESTOSTERO200 MG/1 M IM
[2023-03-09 11:58] VITALS: BP 147/90
[2023-03-09] MEDS ORDERED: PREDNISONE10 MG PO (12:08)
== END 2023-03-09 12:34 | disposition home or self-care (01) ==
LOC: ED 11:50
DX: M79.672 Pain in left foot (principal); J45.909 Unspecified asthma, uncomplicated; K21.9 Gastro-esophageal reflux disease without esophagitis; F90.9 Attention-deficit hyperactivity disorder, unspecified type; Z90.89 Acquired absence of other organs; Z98.890 Other specified postprocedural states; F17.200 Nicotine dependence, unspecified, uncomplicated

== ENCOUNTER → 2023-04-03 | Outpatient (CLI) | payer OTHER | END | disposition home or self-care (01) | LOC: CARDIO 09:10 | PROVIDERS: ATTEND Physician Assistant | DX: Z51.81 Encounter for therapeutic drug level monitoring (principal) ==

== ENCOUNTER 2023-08-02 23:29 | Emergency (ER) | payer OTHER ==
[~2023-08-02] VITALS: Ht 185.4 cm; Wt 172.4 kg
[2023-08-02 23:42] VITALS: BP 119/69
[2023-08-03] MEDS ORDERED: NAPROSYN500 MG PO (00:36)
== END 2023-08-03 00:45 | disposition home or self-care (01) ==
LOC: ED 23:29
DX: S93.401A Sprain of unspecified ligament of right ankle, initial encounter (principal); J45.909 Unspecified asthma, uncomplicated; K21.9 Gastro-esophageal reflux disease without esophagitis; F90.9 Attention-deficit hyperactivity disorder, unspecified type; Z90.89 Acquired absence of other organs; F17.200 Nicotine dependence, unspecified, uncomplicated; X50.1XXA Overexertion from prolonged static or awkward postures, initial encounter; Y93.89 Activity, other specified; Y92.89 Other specified places as the place of occurrence of the external cause; Y99.0 Civilian activity done for income or pay

== ENCOUNTER 2023-08-29 09:46 | Emergency (ER) | payer SELFPAY ==
[~2023-08-29] VITALS: Wt 170.1 kg
[2023-08-29 10:00] VITALS: BP 150/94
[2023-08-29 11:18] LABS: BASO % 0.1 % (0.0-1.0); EOS # 0.2 10*3/uL (0.0-0.4); EOS % 2.6 % (1.0-4.0); HEMATOCRIT 44.8 % (42.0-52.0); LYMPH # 1.9 10*3/uL (1.3-4.4); LYMPH % 22.2 % (27.0-41.0); MEAN CELL VOLUME 93.1 fl (80.0-94.0); MEAN CORPUSCULAR HGB 31.4 pg (27.0-31.0); MEAN CORPUSCULAR HGB CONC 33.7 g/dl (33.0-37.0); MEAN PLATELET VOLUME 9.5 fl (9.6-12.3); MONO # 0.5 10*3/uL (0.1-1.0); MONO % 6.3 % (3.0-9.0); NEUT # 5.8 10*3/uL (2.3-7.9); NEUT % 68.4 % (47.0-73.0); PLATELET COUNT AUTOMATED 225 10*3/uL (130-400); RED BLOOD COUNT 4.81 10*6/uL (4.50-5.90); RED CELL DISTRI WIDTH 12.5 % (0-14.5); WHITE BLOOD COUNT 8.5 10*3/uL (4.8-10.8)
[2023-08-29 11:42] LABS: ALKALINE PHOSPHATASE 55 U/L (46-116); BUN 8 mg/dl (9-23); CHLORIDE 106 mmol/L (98-107); POTASSIUM 4.6 mmol/L (3.4-5.1); SGPT/ALT 19 U/L (5-49); TOTAL PROTEIN 7.1 gm/dL (6.0-8.0); URIC ACID 9.4 mg/dL (3.7-9.2)
[2023-08-29] MEDS ORDERED: NAPROXEN500 MG PO (12:58)
== END 2023-08-29 13:30 | disposition home or self-care (01) ==
LOC: ED 09:46
PROVIDERS: Family Medicine
DX: M10.9 Gout, unspecified (principal); R06.02 Shortness of breath; R60.0 Localized edema; J45.909 Unspecified asthma, uncomplicated; K21.9 Gastro-esophageal reflux disease without esophagitis; F90.9 Attention-deficit hyperactivity disorder, unspecified type; F17.200 Nicotine dependence, unspecified, uncomplicated

== ENCOUNTER 2023-11-07 23:43 | Emergency (ER) | payer OTHER ==
[~2023-11-07] VITALS: Ht 193 cm; Wt 181.4 kg
[~2023-11-07 23:43] MED LIST changes: +NAPROXEN500 MG PO
[2023-11-08] MEDS ORDERED: ZITHROMAX250 MG PO (03:32)
== END 2023-11-08 03:44 | disposition home or self-care (01) ==
LOC: ED 23:43
DX: J45.909 Unspecified asthma, uncomplicated (principal); F90.9 Attention-deficit hyperactivity disorder, unspecified type; K21.9 Gastro-esophageal reflux disease without esophagitis; E78.5 Hyperlipidemia, unspecified; I10 Essential (primary) hypertension; R73.9 Hyperglycemia, unspecified; Z98.890 Other specified postprocedural states; F17.200 Nicotine dependence, unspecified, uncomplicated; Z90.89 Acquired absence of other organs; Z20.822 Contact with and (suspected) exposure to COVID-19

== ENCOUNTER 2023-11-18 16:33 | Emergency (ER) | payer OTHER ==
[~2023-11-18] VITALS: Ht 185.4 cm; Wt 176.9 kg
[2023-11-18 16:41] VITALS: BP 152/85
[2023-11-18 20:12] LABS: BASO % 0.3 % (0.0-1.0); EOS # 0.4 10*3/uL (0.0-0.4); EOS % 4.6 % (1.0-4.0); HEMATOCRIT 44.1 % (42.0-52.0); LYMPH % 25.9 % (27.0-41.0); MEAN CELL VOLUME 91.3 fl (80.0-94.0); MEAN CORPUSCULAR HGB 30.6 pg (27.0-31.0); MEAN CORPUSCULAR HGB CONC 33.6 g/dl (33.0-37.0); MEAN PLATELET VOLUME 9.2 fl (9.6-12.3); MONO # 0.6 10*3/uL (0.1-1.0); MONO % 8.2 % (3.0-9.0); NEUT # 4.7 10*3/uL (2.3-7.9); NEUT % 60.6 % (47.0-73.0); PLATELET COUNT AUTOMATED 237 10*3/uL (130-400); RED BLOOD COUNT 4.83 10*6/uL (4.50-5.90); RED CELL DISTRI WIDTH 12.3 % (0-14.5); WHITE BLOOD COUNT 7.7 10*3/uL (4.8-10.8)
[2023-11-18 20:27] LABS: ACT PARTIAL THROMBO TIME 29.1 SECONDS (20.0-32.1)
[2023-11-18 20:35] LABS: ALKALINE PHOSPHATASE 58 U/L (46-116); BUN 7 mg/dl (9-23); CHLORIDE 105 mmol/L (98-107); LIPASE 44 U/L (12-53); POTASSIUM 4.2 mmol/L (3.4-5.1); SGPT/ALT 22 U/L (5-49); TOTAL PROTEIN 7.5 gm/dL (6.0-8.0)
[2023-11-18] MEDS ORDERED: PREDNISONE50 MG PO (22:49)
== END 2023-11-18 23:30 | disposition home or self-care (01) ==
LOC: ED 16:33
PROVIDERS: Internal Medicine
DX: M25.571 Pain in right ankle and joints of right foot (principal); M25.572 Pain in left ankle and joints of left foot; M79.89 Other specified soft tissue disorders; E78.5 Hyperlipidemia, unspecified; F17.200 Nicotine dependence, unspecified, uncomplicated; Z79.2 Long term (current) use of antibiotics; Z79.899 Other long term (current) drug therapy

== ENCOUNTER 2024-05-19 16:25 | Emergency (ER) | payer OTHER ==
[~2024-05-19] VITALS: Ht 185.4 cm; Wt 176.9 kg
[2024-05-19 16:36] VITALS: BP 136/86
[2024-05-19] MEDS ORDERED: CETRAXAL1 EACH OT (16:59)
[2024-05-19] MEDS ORDERED: AMOX-CLAV 875-1 EACH PO (16:59)
== END 2024-05-19 17:02 | disposition home or self-care (01) ==
LOC: ED 16:25
DX: H66.91 Otitis media, unspecified, right ear (principal); H60.91 Unspecified otitis externa, right ear; J45.909 Unspecified asthma, uncomplicated; K21.9 Gastro-esophageal reflux disease without esophagitis; F90.9 Attention-deficit hyperactivity disorder, unspecified type; Z90.89 Acquired absence of other organs; F17.200 Nicotine dependence, unspecified, uncomplicated

== ENCOUNTER 2024-10-27 11:46 | Emergency (ER) | payer OTHER ==
[~2024-10-27] VITALS: Ht 185.4 cm; Wt 176.9 kg
[~2024-10-27 11:46] MED LIST changes: +AMOX-CLAV 875-1 EACH PO; +CETRAXAL1 EACH OT
[2024-10-27] MEDS ORDERED: Acetaminophen/Oxycodone 5 MG/325 MG TABLET PO ONE (12:55)
[2024-10-27] MEDS ORDERED: MELOXICAM15 MG PO (12:59)
== END 2024-10-27 13:50 | disposition home or self-care (01) ==
LOC: ED 11:46
DX: S93.402A Sprain of unspecified ligament of left ankle, initial encounter (principal); J45.909 Unspecified asthma, uncomplicated; K21.9 Gastro-esophageal reflux disease without esophagitis; F90.9 Attention-deficit hyperactivity disorder, unspecified type; F17.200 Nicotine dependence, unspecified, uncomplicated; V83.9XXA Unspecified occupant of special industrial vehicle injured in nontraffic accident, initial encounter; Y93.89 Activity, other specified; Y92.89 Other specified places as the place of occurrence of the external cause; Y99.0 Civilian activity done for income or pay

== ENCOUNTER 2025-03-29 10:12 | Emergency (ER) | payer OTHER ==
[~2025-03-29] VITALS: Ht 185.4 cm; Wt 172.4 kg
[~2025-03-29 10:12] MED LIST changes: +MELOXICAM15 MG PO
[2025-03-29 10:36] VITALS: BP 151/106
[2025-03-29] MEDS ORDERED: PREDNISONE20 M1 PO (11:25)
[2025-03-29] MEDS ORDERED: Acetaminophen/Hydrocodone 5 MG/325 MG TABLET PO ONE (11:30)
[2025-03-29] MEDS ORDERED: methylPREDNISolone sod succ 125 MG VIAL IM ONE (11:30)
[2025-03-29] MEDS ORDERED: Water, Sterile 10 ML VIAL ONE (12:04)
== END 2025-03-29 12:03 | disposition home or self-care (01) ==
LOC: ED 10:12
DX: S76.011A Strain of muscle, fascia and tendon of right hip, initial encounter (principal); J45.909 Unspecified asthma, uncomplicated; K21.9 Gastro-esophageal reflux disease without esophagitis; E78.5 Hyperlipidemia, unspecified; E66.01 Morbid (severe) obesity due to excess calories; Z68.30 Body mass index [BMI] 30.0-30.9, adult; Z87.891 Personal history of nicotine dependence; X58.XXXA Exposure to other specified factors, initial encounter; Y93.89 Activity, other specified; Y92.89 Other specified places as the place of occurrence of the external cause; Y99.8 Other external cause status

== ENCOUNTER 2025-08-20 06:12 | Emergency (ER) | payer OTHER ==
[~2025-08-20] VITALS: Ht 185.4 cm; Wt 172.4 kg
[2025-08-20 06:32] VITALS: BP 167/95
[2025-08-20] MEDS ORDERED: NAPROSYN500 MG PO (06:34)
[2025-08-20] MEDS ORDERED: METHOCARBAMOL750 M1 PO (06:34)
[2025-08-20] MEDS ORDERED: PREDNISONE20 M1 PO (06:34)
[2025-08-20] MEDS ORDERED: METHOCARBAMOL 750 MG TAB PO ONE (06:35)
[2025-08-20] MEDS ORDERED: Dexamethasone Sodium Phospha 20 MG/5 ML VIAL IM ONE (06:35)
== END 2025-08-20 06:56 | disposition home or self-care (01) ==
LOC: ED 06:12
DX: S86.011A Strain of right Achilles tendon, initial encounter (principal); J45.909 Unspecified asthma, uncomplicated; K21.9 Gastro-esophageal reflux disease without esophagitis; F90.9 Attention-deficit hyperactivity disorder, unspecified type; F17.210 Nicotine dependence, cigarettes, uncomplicated; X58.XXXA Exposure to other specified factors, initial encounter; Y93.89 Activity, other specified; Y92.89 Other specified places as the place of occurrence of the external cause; Y99.8 Other external cause status

== ENCOUNTER 2025-10-10 00:08 | Emergency (ER) | payer OTHER ==
[~2025-10-10] VITALS: Ht 185.4 cm; Wt 172.4 kg
[~2025-10-10 00:08] MED LIST changes: +METHOCARBAMOL750 M1 PO
[2025-10-10 00:19] VITALS: BP 135/82
[2025-10-10] MEDS ORDERED: PREDNISONE20 M1 PO (00:33)
== END 2025-10-10 00:43 | disposition home or self-care (01) ==
LOC: ED 00:08
DX: M10.9 Gout, unspecified (principal); J45.909 Unspecified asthma, uncomplicated; K21.9 Gastro-esophageal reflux disease without esophagitis; F90.9 Attention-deficit hyperactivity disorder, unspecified type; F17.200 Nicotine dependence, unspecified, uncomplicated; Z91.030 Bee allergy status; Z90.89 Acquired absence of other organs